=== PATIENT | female | born 1970 | race Caucasian/White ===

== ENCOUNTER → 2017-11-16 15:11 | Outpatient (CLI) | payer OTHER, SELFPAY ==
--- NOTE | 2017-11-16 15:19 | RAD_ITS ---
STUDY: X-RAY - LUMBAR SPINE REASON FOR EXAM: Female, 47 years old. Pain. TECHNIQUE: 5 view(s) of the lumbar spine were obtained. COMPARISON: None FINDINGS: Normal lumbar lordosis. There is no substantial scoliosis. There is a normal alignment of the vertebrae. There is minimal multilevel endplate spondylosis of the lumbar vertebrae. There is mild multi-level degenerative disc disease with multi-level disc space narrowing. There is no demonstrated fracture. The soft tissue structures are unremarkable. RAD/L/S Spine Min 4 Views IMPRESSION: No acute or focal abnormality. Unremarkable for age. Electronically Signed: Rhett Santos MD at 8:42 EDT , Service support ,
== END ==
PROVIDERS: Family Provider Family Medicine; PCP Family Medicine; Visit Provider Family Medicine
DX: M54.5 Low back pain (principal)
CPT/HCPCS: 72110

== ENCOUNTER 2018-12-01 17:59 | Emergency (ER) | payer MEDICAID, SELFPAY ==
[2018-12-01 18:00] VITALS: BP 153/75; PULSE 115; RESP 16; TEMP 37.3; O2SAT 97; BMI 39.1
--- NOTE | 2018-12-01 18:40 | ED.DCSUM_ITS ---
History of Present Illness Chief Complaint: Weakness Informant: Patient Onset: Month(s) - Dyspnea, fatigue and weakness x1 month Context: Gradual Onset Timing: Continuous Quality: Dyspnea, weakness dyspnea on exertion Location: Not applicable Current Severity: Mild Maximum Severity: Moderate Worsened by: Activity Relieved by: Nothing Associated Symptoms: No associated symptoms Narrative: Patient is a 48-year-old woman with history of anemia of unknown etiology who presents with dyspnea, dyspnea on exertion, weakness and fatigue. She believes she needs a blood transfusion. She denies fever, chills or night sweats. She reports weight gain not weight loss. She denies cough. She denies pleuritic chest pain. She denies history of PE or DVT. She does report leg swelling secondary to lymphedema. She denies discoloration or pain. She denies GI or symptoms. She denies history of coronary disease. She denies history of diabetes hypercholesterolemia. - Past Medical History (1) History of hypertension Status: Chronic (2) History of anemia Status: Chronic Past Medical History - Allergies and Home Meds Allergies/Adverse Reactions: Allergies No Known Allergies Allergy (Verified 12/01/18 18:00) Primary Care Physician: Care Physician,No Primary [Primary Care Provider] - Prior records reviewed: Yes Lives: Spouse/ Significant Other Smoking Status: Current every day smoker Drugs: None Review of Systems General: Denies: Chills, Fever, Sweats Eyes: Denies: Visual changes - bilaterally, Blurred Vision - bilaterally, Diplopia ENT: Denies: Bilateral ear pain, Rhinorrhea, Sore throat Cardiovascular: Denies: Chest pain, Palpitations Respiratory: Reports: Dyspnea, Dyspnea on exertion. Denies: Cough, Sputum, Orthopnea, Paroxysmal nocturnal dyspnea Gastrointestinal: Denies: Abdominal pain, Nausea, Vomiting, Diarrhea, Melena, Hematochezia Genitourinary: Denies: Dysuria, Hematuria, Frequency Musculoskeletal: Denies: Myalgias, Arthralgias, Neck pain, Back pain, Extremity Pain Skin: Denies: Rash, Wounds Neurological: Reports: Weakness. Denies: Headache, Parasthesia, Numbness, -, - Endocrine: Denies: Heat intolerance, Cold intolerance Hematologic: Denies: Easy bruising, Easy bleeding Physical Exam Vital Signs/Narrative: Vital Signs Temp Pulse Resp BP Pulse Ox 12/01/18 18:00 99.1 F 115 H 16 153/75 H 97 Inital Vital Signs reviewed: Yes General: Well nourished, Well developed, Obese, No Acute Distress Head: Normocephalic, Atraumatic Eyes: Perrl, EOMI. Negative for: Pale conjunctiva, Scleral icterus ENT: Moist mucous membranes, No rhinorrhea Neck: Supple, Nontender. Negative for: No lymphadenopathy, No JVD, - Cardiovascular: Regular rhythm, No murmurs, Normal S1, Normal S2, Tachycardia Respiratory: CTA bilaterally. Negative for: No distress - Patient is tachypnic at rest and respiratory rate is much greater than 16 documented by triage. Abdomen: Soft, Nontender, Nondistended, Normal bowel sounds, No masses Back: Nontender, Normal Inspection Extremities: Nontender, Edema - 1+ bilaterally Skin: Normal color, No rash, No Trauma. Negative for: Cyanosis, Diaphoresis, Jaundice Neurological: Alert, Oriented x3, Cranial nerves II-XII grossly intact, Normal Strength, Normal Sensation Psychological: Normal affect, Normal Mood Diagnostic/Tx/Re-eval Impressions Chest X-Ray 12/01/18 19:37 IMPRESSION: Normal x-ray examination of the chest. Electronically Signed: Jagdeep Fisher DO at 20:00 EDT Tel , Service support , 12/01/18 19:37 Chest PA and Lateral [RAD] Stat 12/01/18 20:03 CTA Chest W/WO Contrast [CT] Stat Laboratory Results 12/01/18 12/01/18 12/01/18 18:33 18:33 18:33 WBC 7.2 RBC 4.62 Hgb 9.7 L Hct 33.6 L MCV 72.7 L MCH 21.0 L MCHC 28.9 L RDW 19.9 H RDW Differential 51.8 H Plt Count 482 H MPV 9.0 Immature Gran % (Auto) 0.100 Neut % (Auto) 75.2 H Lymph % (Auto) 16.[address] [facility] % (Auto) 5.6 Eos % (Auto) 1.7 Baso % (Auto) 0.7 Absolute Neuts (auto) 5.4 Absolute Lymphs (auto) 1.20 Total Counted Not Reportable Differential Comment SCANNED Diff Path Review May foll Platelet Estimate SLT INC Polychromasia RARE Anisocytosis 2+ Microcytosis 1+ Tear Drop Cells RARE D-Dimer Quant (PE/DVT) 1.28 H* Sodium 140 Potassium 4.1 Chloride 107 Carbon Dioxide 25.0 Anion Gap 8 BUN 20 H Creatinine 0.78 Estim Creat Clear Calc 88.01 Est GFR (MDRD) Af Amer 100 Est GFR (MDRD) Non-Af 83 BUN/Creatinine Ratio 25.5 H Glucose 113 H Calcium 9.2 Troponin I 12/01/18 18:33 WBC RBC Hgb Hct MCV MCH MCHC RDW RDW Differential Plt Count MPV Immature Gran % (Auto) Neut % (Auto) Lymph % (Auto) [facility] % (Auto) Eos % (Auto) Baso % (Auto) Absolute Neuts (auto) Absolute Lymphs (auto) Total Counted Differential Comment Diff Path Review Platelet Estimate Polychromasia Anisocytosis Microcytosis Tear Drop Cells D-Dimer Quant (PE/DVT) Sodium Potassium Chloride Carbon Dioxide Anion Gap BUN Creatinine Estim Creat Clear Calc Est GFR (MDRD) Af Amer Est GFR (MDRD) Non-Af BUN/Creatinine Ratio Glucose Calcium Troponin I < 0.015 - Medical Decision Making We will place on monitor to determine rhythm. Clinically patient does not appear anemic since there is erythema in the crease of the palm and conjunctive is pink. Concern her symptoms are for other reasons. Patient states she is anemic. Will obtain CBC and BMP. If there is no evidence of anemia will entertain cardiac pulmonary etiology and further testing will be ordered. CTA reveals bilateral pulmonary embolus. Awaiting formal read. Patient will receive a dose of Eliquis. If formal read is in agreement will discharge a prescription for Eliquis. Based on medical calculator for pulmonary embolus severity index patient is at very low risk for event of 30 days. More importantly symptoms started 30 days ago and she has survived. I was contacted by radiologist at 2036. ED Disposition - Plan for ED Patient: Disposition: Home or Assisted Living Diagnosis: Bilateral pulmonary embolism Instructions: Pulmonary Embolism Prescriptions: Apixaban [Eliquis] 5 mg PO BID #74 tab Referrals: Care Physician,No Primary [Primary Care Provider] - Doctor,Your [STAFF PHYSICIAN] -
[2018-12-01 18:55] LABS: Absolute Neutrophil Count 5.4 X10^3/uL (2.0-7.7); Basophil# 0.05 X10^3/uL; Basophil% 0.7 % (0-1); Eosinophil# 0.12 X10^3/uL; Eosinophils% 1.7 % (0-5); Hematocrit 33.6 % (37-47); Hemoglobin 9.7 g/dl (12.0-15.0); Lymphocyte % 16.7 % (19-41); Mean Corp Hgb Conc 28.9 g/gl (32-36); Mean Corpuscular Volume 72.7 fL (81-99); Monocyte% 5.6 % (0-10); Neutrophil # 5.42 X10^3/uL (2.7-7.7); Neutrophil % 75.2 % (47-70); Platelet Count 482 K/mm3 (150-450); RBC Distribution Width CV 19.9 % (11.6-14.6); RBC Distribution Width SD 51.8 fl (35.1-43.9); Red Blood Count 4.62 M/mm3 (4.2-5.4); White Blood Count 7.2 K/mm3 (4.4-11.0)
[2018-12-01 18:58] LABS: Differential Indicated SCAN CRITERIA MET; POSITIVE COUNT NO; POSITIVE DIFFERENTIAL NO; POSITIVE MORPHOLOGY YES
--- NOTE | 2018-12-01 19:07 | EKG12_ITS ---
Test Reason : Blood Pressure : / mmHG Vent. Rate : 092 BPM Atrial Rate : 092 BPM P-R Int : 144 ms QRS Dur : 082 ms QT Int : 364 ms P-R-T Axes : 037 -23 012 degrees QTc Int : 450 ms Normal sinus rhythm Normal ECG Confirmed by DEUCE BAINS, SARAH ([id number]), market editor DELMY KAPLAN ([id number] on 12/04/2018 1:45:19 PM Referred By: Confirmed By:SARAH TRIPATHI MD
[2018-12-01 19:11] LABS: Anion Gap 8 (5-15); BUN 20 mg/dL (7-18); BUN/Creat Ratio 25.5 RATIO (10-20); Calcium,Total 9.2 mg/dL (8.5-10.1); Chloride 107 mmol/L (98-107); Creatinine, Serum 0.78 mg/dL (0.55-1.02); EST Glomerular Filtration Rate 83 mL/min (>60); Est Glom Filt Rate - Afr Amer 100 mL/min (>60); Estimated Creatinine Clearance 88.01 ml/min; Glucose 113 mg/dL (74-106); Potassium 4.1 mmol/L (3.5-5.1); Sodium Level 140 mmol/L (136-145)
--- NOTE | 2018-12-01 19:37 | RAD_ITS ---
STUDY: X-RAY CHEST REASON FOR EXAM: Female, 48 years old. Weakness and fatigue TECHNIQUE: PA and lateral views of the chest. COMPARISON: 01/28/2017 FINDINGS: Stable hiatal hernia with air-fluid level The lungs are clear and expanded. There is no demonstrated pleural abnormality. Normal size heart. Normal mediastinum and trish. Normal visualized pulmonary arteries. Normal visualized aortic arch and descending thoracic aorta. Normal visualized thoracic spine. Normal visualized ribs, clavicles, and shoulders. There is no demonstrated abnormality of the visualized soft tissue structures of the upper abdomen. RAD/Chest PA and Lateral IMPRESSION: Normal x-ray examination of the chest. Electronically Signed: Jagdeep Fisher DO at 20:00 EDT Tel , Service support ,
[2018-12-01 19:59] LABS: D-Dimer Quantitative (DVT/PE) 1.28 FEU/ug/m (0.27-0.49)
--- NOTE | 2018-12-01 20:02 | ED.RN ---
DR SALGUERO NOTIFIED OF DDIMER RESULTS
--- NOTE | 2018-12-01 20:03 | CT_ITS ---
We are attempting to reach an attending provider to discuss findings. An addendum with communication details will be sent when the communication is complete. STUDY: CTA CHEST REASON FOR EXAM: Female, 48 years old. Tachycardia and elevated d-dimer RADIATION DOSAGE (If Supplied By Facility): CTDIvol = ( 9.22 ) mGy, DLP = ( 533.44 ) mGycm TECHNIQUE: The examination was performed with the intravenous administration of 100ML IV Isovue 370. Post-processing of the angiographic images was performed, with multiplanar reformation and 3D reconstruction. Individualized dose optimization techniques were used for this CT. COMPARISON: None. FINDINGS: Normal enhancement of the main pulmonary artery and right and left pulmonary arteries. There is intraluminal thrombus noted within the distal right pulmonary artery descending interlobar branch of the right pulmonary artery and multiple segmental as well as subsegmental vessels to the right lower lobe. . There is also intraluminal thrombus within the descending interlobar vessel and segmental vessels to the left lower lobe. Normal thoracic aorta and visualized great vessels. There is no demonstrated aortic dissection. Normal heart and pericardium. Normal mediastinum. Normal hilar regions. Normal visualized trachea and bronchi. The lungs are well expanded. Normal pulmonary parenchyma. Normal pleura. Normal chest wall structures. Normal osseous structures. Large intrathoracic hiatal hernia is noted. Normal visualized upper abdomen. CT/CTA Chest W/WO Contrast IMPRESSION: Multiple bilateral pulmonary emboli to the lower lobe vessels Large intrathoracic hiatal hernia Electronically Signed: Randolph Palacio MD at 20:37 EDT , Service support ,
[2018-12-01 20:11] LABS: Anisocytosis 2+; Differential Comment SCANNED; Microcytosis 1+; Platelet Estimate SLT INC (ADEQ); Polychromasia RARE; Tear Drop Cell RARE
[2018-12-01 20:26] VITALS: BP 109/83; PULSE 94; RESP 20; O2SAT 96
[2018-12-01] MEDS: APIXABAN 5 MG TABLET 10 MG PO (20:49)
--- NOTE | 2018-12-01 21:04 | ED.DCSUM_ITS ---
- ER Visit Summary Date of Service: 12/01/18 Chief Complaint: [] History of Present Illness: The patient is a 48 F [] Physical Examination: [] Test Results: [] Emergency Department Course and Treatment: [] Treatment Plan: [] Disposition: [] Impression: [] This note was generated with Eyestorm dictation software. It may contain incorrect words, spelling, and punctuation that were not noted in review of the chart prior to signing ED Disposition - Plan for ED Patient: Disposition: Home or Assisted Living Diagnosis: Bilateral pulmonary embolism Instructions: Pulmonary Embolism Prescriptions: Levothyroxine Sodium [Synthroid] 150 mcg PO DAILY #30 tab Apixaban [Eliquis] 5 mg PO BID #74 tab Referrals: Care Physician,No Primary [Primary Care Provider] - Doctor,Your [STAFF PHYSICIAN] -
[2018-12-04 15:10] LABS: Pathologist Review Reviewed
== END 2018-12-01 20:53 | disposition home or self-care (01) ==
PROVIDERS: Emergency Provider Emergency Medicine
DX: I26.99 Other pulmonary embolism without acute cor pulmonale (principal); I10 Essential (primary) hypertension; D64.9 Anemia, unspecified; F17.200 Nicotine dependence, unspecified, uncomplicated
CPT/HCPCS: 71046; 71275; 80048; 84484; 85025; 85379; 93005; 99285; Q9967; A4216

== ENCOUNTER → 2019-06-19 08:00 | Outpatient (CLI) | payer MEDICAID, SELFPAY ==
[2019-05-29 10:27] VITALS: BMI 40.1
--- NOTE | 2019-06-20 09:26 | PFT ---
INTRODUCTION: The patient is a 49-year-old female that presents for pulmonary function studies secondary to a diagnosis of nicotine dependence. Respiratory therapy reports good patient effort. Bronchodilators were used during testing. INTERPRETATION: Forced expiration spirometry demonstrates no evidence of a large airways obstructive ventilatory defect. There was a partial, albeit technically nonsignificant, response to aerosolized bronchodilators. There was a rather robust mid flow bronchodilator response. Spirograms are of good quality and plateau normally. Body plethysmography was performed and reveals an elevated TLC and RV. Diffusing capacity by single breath CO is reduced to 69% of predicted. IMPRESSION: Subtle findings of possible small airways disease with partial, albeit technically nonsignificant, response to bronchodilators.
== END ==
PROVIDERS: Referring Provider Internal Medicine Critical Care Medicine; Visit Provider Internal Medicine Critical Care Medicine
DX: F17.210 Nicotine dependence, cigarettes, uncomplicated (principal)
CPT/HCPCS: 94060; 94726; 94729

== ENCOUNTER 2019-12-16 19:57 | Emergency (ER) | payer MEDICAID, SELFPAY ==
[2019-05-29 10:27] VITALS: BMI 40.1
[2019-12-16 19:58] VITALS: BP 117/83; PULSE 91; RESP 18; TEMP 36.1; O2SAT 99; BMI 39.5
[2019-12-16 20:10] VITALS: BP 123/84; PULSE 90; RESP 16; O2SAT 99
--- NOTE | 2019-12-16 20:13 | CT_ITS ---
STUDY: CT BRAIN WITHOUT CONTRAST REASON FOR EXAM: Female, 49 years old. Near syncope, heavy object fell on patient''s head. RADIATION DOSAGE (If Supplied By Facility): CTDIvol = ( 44.99 ) mGy, DLP = ( 798.92 ) mGycm TECHNIQUE: Transaxial CT imaging of the brain was performed without administration of intravenous contrast material. Individualized dose optimization techniques were used for this CT. COMPARISON: No relevant priors. FINDINGS: Normal soft tissue structures. Normal calvarium. Normal size ventricles and extra-axial spaces for the patient''s age. Normal white matter tracts of the cerebral hemispheres. Normal basal ganglia and thalami. Normal brainstem. Normal cerebellum. There is no intracranial hemorrhage. There are no findings of an acute ischemic infarction. Normal visualized paranasal sinuses. CT/Brain/Head without Contrast IMPRESSION: Normal unenhanced CT scan of the brain. Electronically Signed: Roberto Carlos Beard MD at 20:58 EDT Tel , Service support ,
--- NOTE | 2019-12-16 20:14 | EKG12_ITS ---
Test Reason : SYNCOPE Blood Pressure : / mmHG Vent. Rate : 078 BPM Atrial Rate : 078 BPM P-R Int : 174 ms QRS Dur : 080 ms QT Int : 350 ms P-R-T Axes : 046 -21 075 degrees QTc Int : 399 ms Normal sinus rhythm Low voltage QRS Nonspecific T wave abnormality Abnormal ECG Confirmed by DEUCE BAINS, SARAH ([id number]), metropolitan editor DELMY KAPLAN ([id number]) on 12/18/2019 11:13:27 AM Referred By: OMER Confirmed By:SARAH TRIPATHI MD
[2019-12-16] MEDS: 0.9% Normal Saline 1,000 ML 1000 ML IV (20:26)
[2019-12-16 20:38] LABS: Absolute Lymphocyte Count 1.47 X10^3/uL (0.83-4.51); Absolute Neutrophil Count 4.8 X10^3/uL (2.0-7.7); Basophil# 0.05 X10^3/uL; Basophil% 0.7 % (0-1); Eosinophil# 0.08 X10^3/uL; Eosinophils% 1.2 % (0-5); Hemoglobin 8.8 g/dL (12.0-15.0); Lymphocyte # 1.47 X10^3/ul (4.0); Lymphocyte % 21.2 % (19-41); Mean Corp Hgb Conc 29.3 g/dL (32-36); Mean Corpuscular Hgb 25.1 pg (27.0-32.0); Mean Corpuscular Volume 85.7 fL (81-99); Mean Platelet Vol. 10.3 fl (6.2-12.0); Monocyte# 0.52 X10^3/uL; Monocyte% 7.5 % (0-10); NRBC Flagged by Analyzer 0 % (0-5); POSITIVE MORPHOLOGY YES; Platelet Count 306 K/mm3 (150-450); RBC Distribution Width CV 21.7 % (11.6-14.6); RBC Distribution Width SD 66.5 fl (35.1-43.9)
[2019-12-16 20:42] LABS: Differential Indicated SCAN CRITERIA MET
[2019-12-16 20:48] LABS: International Normalized Ratio 1.1; Prothrombin Time (Protime)PT. 13.5 SECONDS (11.7-14.9)
[2019-12-16 20:49] LABS: Partial Thromboplast Time 32.6 Seconds (24.1-36.2)
[2019-12-16 21:25] LABS: Anisocytosis 4+; Differential Comment SCANNED; Ovalocyte RARE; Platelet Estimate ADEQUATE (ADEQ); Polychromasia RARE
[2019-12-16 21:37] LABS: Anion Gap 6 (5-15); BUN 21 mg/dL (7-18); BUN/Creat Ratio 19.8 RATIO (10-20); Calcium,Total 8.8 mg/dL (8.5-10.1); Chloride 107 mmol/L (98-107); Creatinine, Serum 1.06 mg/dL (0.55-1.02); EST Glomerular Filtration Rate 58 mL/min (>60); Est Glom Filt Rate - Afr Amer 70 mL/min (>60); Estimated Creatinine Clearance 64.05 ml/min; Glucose 100 mg/dL (74-106); Potassium 4.4 mmol/L (3.5-5.1); Sodium Level 139 mmol/L (136-145)
[2019-12-16 22:13] VITALS: BP 128/72; BP 140/93; BP 143/99; PULSE 71; PULSE 79; PULSE 88; RESP 16; O2SAT 99
--- NOTE | 2019-12-16 22:23 | ED.VISSUMM ---
- ER Visit Summary Date of Service: 12/16/19 Chief Complaint: Vaginal bleeding History of Present Illness: The patient is a 49 F who goes to the [facility]. She does not see a dump motorman. She reports that she has vaginal bleeding that began 5 days ago. States that she is having to change a pad every 30 minutes. She reports that she had a episode of heavier bleeding 2 months ago, but is never had anything this severe. She states that she is typically having a period every 2 months. She last had vaginal bleeding 1 week ago that lasted 1 day. Patient has a history of PE and is on Eliquis. Her last dose was at 9:00 this morning. She also reports that she has a history of hypothyroidism and has not been taking her Synthroid as she has not been able to get a refill during the pandemic. Patient reports that she had a syncopal episode today while walking back from the bathroom. She did have a blow to the head. She denies any preceding symptoms. Physical Examination: Vitals: Stable. Afebrile. General: Well-nourished and well-developed. Head: Normocephalic atraumatic. Neck: Supple, no lymphadenopathy. No JVD. Nontender. Cardiovascular: Regular rate and rhythm. No murmurs. Respiratory: No respiratory distress. Clear to auscultation bilaterally. Abdominal: Soft, nontender, nondistended, normal bowel sounds. No guarding, rebound, or peritoneal signs. : Patient refused a pelvic exam. Back: Nontender. Extremities: Nontender, no edema. Skin: Normal color, no rash. Neurologic: Alert and oriented ?3. Cranial nerves II through XII are intact. Normal strength and sensation. Psych: Normal affect. Test Results: CBC shows a hemoglobin of 8.8 with hematocrit of 30.0. Last hemoglobin was 9.7 in 2019. Chem-7 shows a BUN of 21 and creatinine 1.06. INR is 1.1. PTT is 32.6. TSH is 178. EKG is sinus at [address] changes. Clinical Impression(s) from Imaging Studies Brain CT 12/16/19 20:13 IMPRESSION: Normal unenhanced CT scan of the brain. Electronically Signed: Roberto Carlos Beard MD at 20:58 EDT Tel , Service support , Emergency Department Course and Treatment: Patient had negative orthostatic vital signs. She was given a liter of IV fluids. She refused pain medications. Treatment Plan: The patient was discussed with Dr. Butts who will be in to see her in the emergency department. The patient is adamant that she will not be admitted to the hospital. Dr. Butts tried to talk her into staying in the hospital as well. She continued to refuse this. Patient is alert and oriented x3. I had a prolonged discussion with her about the possibility of continued bleeding. She does understand this and would like to leave regardless of this. Patient has written an order for an outpatient H&H to be obtained tomorrow and instructed to follow-up with Dr. Butts tomorrow as well. She will be placed back on her Synthroid. Return to the emergency department for any worsening symptoms. Disposition: Left AGAINST MEDICAL ADVICE. Impression: 1. Vaginal bleeding. 2. Coagulopathy on Eliquis. 3. Hypothyroid. 4. Left AGAINST MEDICAL ADVICE. This note was generated with Flixwagonation software. It may contain incorrect words, spelling, and punctuation that were not noted in review of the chart prior to signing ED Disposition - Plan for ED Patient: Instructions: ED Bleed Irregular Vaginal Prescriptions: Levothyroxine [Synthroid] 125 mcg PO DAILY #30 tablet Referrals: Jennifer Dumont [Primary Care Provider] - 1-2 Weeks Sera Butts DO [STAFF PHYSICIAN] - 1 Day for another exam
[2019-12-16] MEDS: Levothyroxine 125 MCG Tablet PO (22:43)
--- NOTE | 2019-12-16 22:58 | PCM.CONS.GEN ---
Problem List (1) Menorrhagia Status: Acute (2) Irregular menses Status: Acute (3) Obesity Status: Acute (4) History of pulmonary embolism Status: Acute (5) Hx of senior living use of blood thinners Status: Acute Reason for Consult Date of Consultation: 12/16/19 Reason for Consultation: vaginal bleeding History of Present Illness: The patient is a 49 year old F [] presents with menorrhagia with irregular cycle. She has not established with a travel med surg rn. She reports she has not seen a travel med surg rn in many years. She states recently she has had irregular cycles where she will skip 2 to 3 months without having a menstrual cycle. She then has heavy menses, which typically last 1 to 3 days. This episode of vaginal bleeding started out 3 days ago. She is using 2 large pads at a time and changing them every 2 hours. She had a syncopal episode today due to feeling lightheaded and dizzy. She reports chronic anemia with a baseline hemoglobin of 7. She has a history of a pulmonary embolism and is on Eliquis. She says she has had blood transfusions before in the past. Past Medical History Past Medical History (Chronic Problems): Chronic Problems (Last Updated 02/07/19 @ 10:15 by Nano Mace) Thyroid disorder (Chronic) History of hypertension (Chronic) History of anemia (Chronic) Medical History: Medical History (Last Updated 02/07/19 @ 10:15 by Nano Mace) Thyroid disorder (Chronic) E07.9 Pulmonary embolism (Acute) I26.99 History of hypertension (Chronic) Z86.79 History of anemia (Chronic) Z86.2 Allergies No Known Allergies Allergy (Verified 12/16/19 20:01) Home Medications: Ambulatory Orders Medication Instructions Recorded Dexamethasone [Decadron] 4 mg PO DAILY PRN 12/01/18 Modafinil 200 mg PO BID 12/01/18 Prednisone 40 mg PO DAILY PRN 12/01/18 apixaban 5 mg tablet 5 mg PO BID #60 tab 10/18/19 Ergocalciferol [Vitamin D] 50,000 mcg PO QWEEK 12/16/19 Gabapentin [Neurontin] 600 mg PO BID 12/16/19 Gabapentin [Neurontin] 900 mg PO DAILY 12/16/19 Levothyroxine [Synthroid] 125 mcg PO DAILY #30 tab 06/14/20 Smoking Status: Light Smoker (<10/day) Review of Systems Gynecological: Reports: Vaginal bleeding Hematologic/ Lymphatic: Reports: Hx of blood clot, Hx of blood transfusion Patient Problems: Active and Suspected Problems (Last Updated 02/07/19 @ 10:15 by Nano Mace) Menorrhagia (Acute) Irregular menses (Acute) Obesity (Acute) History of pulmonary embolism (Acute) Hx of director long term care use of blood thinners (Acute) - Physical Exam Vitals/I&O's: Vital Signs Temp Pulse Resp BP Pulse Ox 97 F L 71 16 128/72 H 99 12/16/19 19:58 12/16/19 22:13 12/16/19 22:13 12/16/19 22:13 12/16/19 22:13 Oxygen Delivery Method Room Air Weight: 260 lb Body Mass Index (BMI) 39.5 Intake and Output for Last 24 Hours 12/14/19 12/15/19 12/16/19 23:59 23:59 23:59 Intake Total 1000 / 1000 Balance 1000 / 1000 General: Alert, No apparent distress HEENT: Atraumatic Lungs: Normal air movement Abdomen: Soft, Non Tender, Non-Distended, Obese, - - Sustainability Coordinator exam- 2 pads that were placed about 20 min ago were completely saturated with bright red blood. Heavy vaginal bleeding was noted with a gold ball sized clot. Skin: No rashes Neurological: Neuro grossly intact Psych/Mental Status: Normal Affect, Appropriate Laboratory Results 12/16/19 20:20: WBC 7.0, RBC 3.50 L, Hgb 8.8 L, Hct 30.0 L, MCV 85.7, MCH 25.1 L, MCHC 29.3 L, RDW Std Deviation 66.5 H, RDW Coeff of [place] 21.7 H, Plt Count 306, MPV 10.3, Immature Gran % (Auto) 0.400, Neut % (Auto) 69.0, Lymph % (Auto) 21.2, [place] % (Auto) 7.5, Eos % (Auto) 1.2, Baso % (Auto) 0.7, Absolute Neuts (auto) 4.8, Absolute Lymphs (auto) 1.47, Nucleated RBC % 0, Differential Comment SCANNED, Platelet Estimate ADEQUATE, Polychromasia RARE, Anisocytosis 4+, Ovalocytes RARE 12/16/19 20:20: PT 13.5, INR 1.1, APTT 32.6 12/16/19 20:20: Sodium 139, Potassium 4.4, Chloride 107, Carbon Dioxide 26.0, Anion Gap 6, BUN 21 H, Creatinine 1.06 H, Estim Creat Clear Calc 64.05, Est GFR (MDRD) Af Amer 70, Est GFR (MDRD) Non-Af 58 L, BUN/Creatinine Ratio 19.8, Glucose 100, Calcium 8.8, TSH 178.00 H 12/16/19 20:20: Blood Type A POSITIVE, Antibody Screen NEGATIVE Assessment/Plan All Active Problems (Last Updated 02/07/19 @ 10:15 by Nano Mace) Menorrhagia (Acute) Irregular menses (Acute) Obesity (Acute) History of pulmonary embolism (Acute) Hx of director long term care use of blood thinners (Acute) Pulmonary embolism (Acute) Evaluated in the ER for menorrhagia with regular cycle. History of pulmonary embolism and on Eliquis. She is not established with a travel med surg rn. She is hemodynamically stable on exam but with a hemoglobin of 8.8. Unclear baseline. Heavy vaginal bleeding was noted on exam. Discussed importance of admission overnight for serial hemoglobin measurements. The patient refuses observation. Discussed risks of going home, and that given a starting hemoglobin of 8.8 and the bleeding that she has on exam, she could due to acute blood loss anemia. Patient understands the risks of going home. The patient understands that in leaving she is doing so against our medical advice, and it is strongly recommended that she stay overnight for further monitoring. Will have patient get a CBC in the morning. Discussed need for pelvic ultrasound, endometrial biopsy, Mirena IUD placement as an outpatient. Will need follow-up as an outpatient. The patient is agreeable to the Mirena IUD.
[2019-12-16 23:10] VITALS: RESP 18
== END 2019-12-16 23:20 | disposition home or self-care (01) ==
LOC: ED 20:36
PROVIDERS: Emergency Provider Emergency Medicine
DX: N93.9 Abnormal uterine and vaginal bleeding, unspecified (principal); E03.9 Hypothyroidism, unspecified; F17.200 Nicotine dependence, unspecified, uncomplicated; Z79.01 Long term (current) use of anticoagulants; Z53.29 Procedure and treatment not carried out because of patient's decision for other reasons
CPT/HCPCS: 70450; 80048; 84443; 85025; 85610; 85730; 86850; 86900; 86901; 93005; 96360; 96361; 99285

== ENCOUNTER 2019-12-25 19:54 | Observation (INO) | payer MEDICAID, SELFPAY ==
[2019-12-25 19:56] VITALS: BP 145/75; PULSE 103; RESP 19; TEMP 36.7; O2SAT 96; BMI 36.5
--- NOTE | 2019-12-25 20:06 | EKG12_ITS ---
Test Reason : WEAKNESS Blood Pressure : / mmHG Vent. Rate : 099 BPM Atrial Rate : 099 BPM P-R Int : 168 ms QRS Dur : 082 ms QT Int : 336 ms P-R-T Axes : 051 -38 052 degrees QTc Int : 431 ms Normal sinus rhythm Left axis deviation Nonspecific T wave abnormality Abnormal ECG Confirmed by TAYLOR HAWKINS ([id number]), editor index GOGO HAMILTON ([id number]) on 01/01/2020 8:08:23 AM Referred By: Stephani Mobley Confirmed By:TAYLOR HAWKINS
--- NOTE | 2019-12-25 20:07 | US_ITS ---
PROCEDURE: ULTRASOUND OF THE FEMALE PELVIS - COMPLETE REASON FOR EXAM: Female, 49 years old. BLEEDING- EXCESSIVE OVER A MONTH WIH CLOTS TECHNIQUE: Transabdominal and Transvaginal TECHNICAL QUALITY: Adequate. COMPARISON: None. FINDINGS: The uterus is anteverted and is in a midline position. The uterus measures 10.5 x 7.3 x 5.5 cm. A posterior fundal intramural fibroid is present measuring 2.1 x 2.1 cm. The endometrium measures 9 mm in thickness, and is hyperechoic. There is no demonstrated endometrial mass. There is a Nabothian cyst of the cervix. The right ovary is non-visualized. There is no visualized right adnexal mass or complex lesion. The left ovary is non-visualized. There is no visualized left adnexal mass or complex lesion. Normal color vascular flow and Doppler signal is demonstrated in both ovaries. There is no fluid in the cul-de-sac. US/Transvaginal Non- IMPRESSION: Small posterior fundal intramural fibroid. Electronically Signed: Sandro Li MD at 22:21 EDT , Service support ,
[2019-12-25 20:20] LABS: Bedside Glucose 94 mg/dL (70-110)
[2019-12-25] MEDS: 0.9% Normal Saline 1,000 ML 1000 ML IV (20:52)
--- NOTE | 2019-12-25 20:59 | ED.DCSUM_ITS ---
History of Present Illness Chief Complaint: Weakness Informant: Patient Onset: Days Context: Gradual Onset Timing: Continuous Current Severity: Moderate Maximum Severity: Moderate Narrative: The patient is a 49-year-old female history significant for prior pulmonary embolus was on Eliquis that presents to the emergency department with dizziness and near syncope. The patient was seen here about a week ago. At that point, she had heavy vaginal bleeding. She was evaluated by WOOD CARVING MACHINE OPERATOR who told the patient that she should be admitted. The patient signed out AGAINST MEDICAL ADVICE. Her bleeding has improved, but she still states that she is been generally weak and lightheaded. She has required transfusion in the past. She denies any fevers or chills. Prior similar symptoms: Yes Recent Illness/Hospitalization: No Past Medical History - Allergies and Home Meds Allergies/Adverse Reactions: Allergies No Known Allergies Allergy (Verified 12/25/19 19:55) Primary Care Physician: Jennifer Dumont [Primary Care Provider] - Prior records reviewed: Yes Past Medical History: - - Prior pulmonary embolus Surgical History: noncontributory Smoking Status: Current every day smoker Review of Systems General: Reports: Malaise. Denies: Chills, Fever, Sweats Eyes: Denies: Visual changes - bilaterally, Diplopia ENT: Denies: Rhinorrhea, Sore throat Cardiovascular: Denies: Chest pain, Palpitations Respiratory: Denies: Dyspnea, Cough, Dyspnea on exertion Gastrointestinal: Reports: Nausea. Denies: Abdominal pain, Vomiting, Diarrhea, Melena, Hematochezia Genitourinary: Denies: Dysuria, Hematuria, Frequency Musculoskeletal: Denies: Back pain, Extremity Pain Skin: Denies: Rash, Wounds Neurological: Denies: Headache, Weakness, Numbness Physical Exam Vital Signs/Narrative: Vital Signs Temp Pulse Resp BP Pulse Ox 12/25/19 19:56 98.1 F 103 H 19 H 145/75 H 96 Inital Vital Signs reviewed: Yes General: Well nourished, Well developed, No Acute Distress Head: Normocephalic, Atraumatic Eyes: Perrl, EOMI ENT: Moist mucous membranes, No rhinorrhea Neck: Supple, Nontender Cardiovascular: Regular rate, Regular rhythm, No murmurs Respiratory: No distress, CTA bilaterally, Chest nontender Abdomen: Soft, Nontender, Nondistended, Normal bowel sounds Back: Nontender, Normal Inspection Extremities: Nontender, No edema Skin: Normal color, No rash Neurological: Alert, Oriented x3, Cranial nerves II-XII grossly intact, Normal Strength, Normal Sensation Psychological: Normal affect, Normal Mood Diagnostic/Tx/Re-eval Clinical Impression(s) from Imaging Studies Transvaginal US 12/25/19 20:07 IMPRESSION: Small posterior fundal intramural fibroid. Electronically Signed: Sandro Li MD at 22:21 EDT , Service support , Abnormal Lab Results 12/25/19 12/25/19 12/25/19 20:15 20:20 20:50 WBC 6.6 RBC 2.40 L Hgb 6.3 L Hct 21.6 L MCV 90.0 MCH 26.3 L MCHC 29.2 L RDW Std Deviation 73.8 H RDW Coeff of [place] 22.8 H Plt Count 333 MPV 9.8 Immature Gran % (Auto) 1.100 H Neut % (Auto) 72.9 H Lymph % (Auto) 18.8 L Rhea % (Auto) 5.5 Eos % (Auto) 1.1 Baso % (Auto) 0.6 Absolute Neuts (auto) 4.8 Absolute Lymphs (auto) 1.23 Nucleated RBC % 0.8 Differential Comment Sodium Potassium Chloride Carbon Dioxide Anion Gap BUN Creatinine Estim Creat Clear Calc Est GFR (MDRD) Af Amer Est GFR (MDRD) Non-Af BUN/Creatinine Ratio Glucose Calcium Total Bilirubin AST ALT Alkaline Phosphatase Total Protein Albumin Globulin Albumin/Globulin Ratio Urine Color Red Urine Clarity Cloudy Urine pH 6.5 Ur Specific [place] 1.010 Urine Protein 100 H Urine Glucose (UA) Normal Urine Ketones 5 H Urine Occult Blood 250 H Urine Nitrite Negative Urine Bilirubin Negative Urine Urobilinogen Normal Ur Leukocyte Esterase 100 H Urine RBC > 100 SEEN Urine WBC 50-100 SEEN Ur Squamous Epith Cells 5-10 SEEN Amorphous Sediment 1+ URATE Urine Bacteria 0 SEEN Urine Mucus RARE POC Glucose 94 Blood Type Antibody Screen Crossmatch 12/25/19 12/25/19 12/25/19 20:50 20:50 20:50 WBC RBC Hgb Hct MCV MCH MCHC RDW Std Deviation RDW Coeff of [place] Plt Count MPV Immature Gran % (Auto) Neut % (Auto) Lymph % (Auto) Rhea % (Auto) Eos % (Auto) Baso % (Auto) Absolute Neuts (auto) Absolute Lymphs (auto) Nucleated RBC % Differential Comment Sodium 139 Potassium 4.2 Chloride 104 Carbon Dioxide 27.0 Anion Gap 8 BUN 15 Creatinine 1.24 H Estim Creat Clear Calc 54.75 Est GFR (MDRD) Af Amer 59 L Est GFR (MDRD) Non-Af 49 L BUN/Creatinine Ratio 12.1 Glucose 106 Calcium 9.0 Total Bilirubin 0.20 AST 16 ALT 24 Alkaline Phosphatase 62 Total Protein 6.9 Albumin 3.8 Globulin 3.1 Albumin/Globulin Ratio 1.2 Urine Color Urine Clarity Urine pH Ur Specific [place] Urine Protein Urine Glucose (UA) Urine Ketones Urine Occult Blood Urine Nitrite Urine Bilirubin Urine Urobilinogen Ur Leukocyte Esterase Urine RBC Urine WBC Ur Squamous Epith Cells Amorphous Sediment Urine Bacteria Urine Mucus POC Glucose Blood Type A POSITIVE Antibody Screen NEGATIVE Crossmatch See Detail - Medical Decision Making The patient presents to the emergency department with near syncope likely secondary to anemia. She is on Eliquis and has had heavy vaginal bleeding. She was evaluated by Dr. Butts, of DENTAL HYGIENE ADMINISTRATIVE ASSISTANT, during her last presentation who recommended admission. The patient was initially mildly tachycardic on arrival. EKG was obtained which was sinus rhythm without acute ischemia. Screening labs do show anemia with hemoglobin of 6.3. As the patient is now symptomatic, I do feel that she would benefit from transfusion. I had discussed the patient with Dr. Palubmo, on-call for DENTAL HYGIENE ADMINISTRATIVE ASSISTANT [facility], Dr. Eli group. She did agree with plan for transfusion. The patient underwent ultrasound which shows a small fibroid, with is is unremarkable. The patient will be admitted at this time for anemia. Impression 1. Symptomatic anemia secondary to vaginal bleeding ED Disposition - Plan for ED Patient: Referrals: Jennifer Dumont [Primary Care Provider] -
[2019-12-25 21:01] LABS: Bacteria 0 SEEN /hpf (None Seen)
[2019-12-25 21:05] LABS: Absolute Lymphocyte Count 1.23 X10^3/uL (0.83-4.51); Absolute Neutrophil Count 4.8 X10^3/uL (2.0-7.7); Basophil# 0.04 X10^3/uL; Basophil% 0.6 % (0-1); Eosinophil# 0.07 X10^3/uL; Eosinophils% 1.1 % (0-5); Hematocrit 21.6 % (37-47); Hemoglobin 6.3 g/dL (12.0-15.0); Lymphocyte # 1.23 X10^3/ul (4.0); Lymphocyte % 18.8 % (19-41); Mean Corp Hgb Conc 29.2 g/dL (32-36); Mean Corpuscular Hgb 26.3 pg (27.0-32.0); Mean Platelet Vol. 9.8 fl (6.2-12.0); Monocyte# 0.36 X10^3/uL; Monocyte% 5.5 % (0-10); NRBC Flagged by Analyzer 0.8 % (0-5); Neutrophil # 4.78 X10^3/uL (2.7-7.7); Neutrophil % 72.9 % (47-70); POSITIVE MORPHOLOGY YES; Platelet Count 333 K/mm3 (150-450); RBC Distribution Width CV 22.8 % (11.6-14.6); RBC Distribution Width SD 73.8 fl (35.1-43.9); White Blood Count 6.6 K/mm3 (4.4-11.0)
[2019-12-25 21:07] LABS: Color, Urine Red (Yellow); Glucose, Dipstick Normal (Normal); Ketone-Dipstick 5 mg/dl (Negative); Leukocyte Esterase-Dipstick 100 /ul (Negative); Nitrite-Dipstick Negative (Negative); Occult Blood-Urine 250 /ul (Negative); Protein-Dipstick 100 mg/dl (Negative); Urine Bilirubin Dipstick Negative (Negative); Urine Clarity Cloudy (Clear); Urine Urobilinogen Normal (Normal); Urine pH 6.5 (5.0 - 8.0)
[2019-12-25 21:13] LABS: Differential Indicated SCAN CRITERIA MET
[2019-12-25 21:19] LABS: Amorphous Sediment 1+ URATE; Mucous, Urine RARE /hpf (<or=2+); Red Blood Cells-Urine > 100 SEEN /hpf (0-5); Squamous Epithelial Cells - UA 5-10 SEEN /hpf (5-10); White Blood Cells 50-100 SEEN /hpf (0-5)
[2019-12-25 21:20] LABS: ALB/GLOB Ratio 1.2 RATIO (0.9-2.4); AST(SGOT) 16 U/L (15-37); Alanine Aminotransfer ALT/SGPT 24 U/L (13-56); Albumin, Serum 3.8 g/dL (3.2-5.0); Alkaline Phosphatase 62 U/L (45-117); Anion Gap 8 (5-15); BUN 15 mg/dL (7-18); BUN/Creat Ratio 12.1 RATIO (10-20); Chloride 104 mmol/L (98-107); Creatinine, Serum 1.24 mg/dL (0.55-1.02); EST Glomerular Filtration Rate 49 mL/min (>60); Est Glom Filt Rate - Afr Amer 59 mL/min (>60); Estimated Creatinine Clearance 54.75 ml/min; Globulin 3.1 g/dL (2.2-4.2); Glucose 106 mg/dL (74-106); Potassium 4.2 mmol/L (3.5-5.1); Protein, Total 6.9 g/dL (6.4-8.2); Sodium Level 139 mmol/L (136-145)
[2019-12-25 22:00] VITALS: BP 123/76; PULSE 87; RESP 20; O2SAT 99
[2019-12-25 22:45] VITALS: BP 132/80; PULSE 87; RESP 24; TEMP 36.7; O2SAT 100
--- NOTE | 2019-12-25 22:50 | HP.PCM_ITS ---
History of Present Illness The patient is a 49 year old F [] Past Medical History Past Medical History (Chronic Problems): Chronic Problems (Last Updated 02/07/19 @ 10:15 by Nano Mace) Thyroid disorder (Chronic) History of hypertension (Chronic) History of anemia (Chronic) Medical History: Medical History (Last Updated 02/07/19 @ 10:15 by Nano Mace) Thyroid disorder (Chronic) E07.9 Pulmonary embolism (Acute) I26.99 History of hypertension (Chronic) Z86.79 History of anemia (Chronic) Z86.2 Allergies No Known Allergies Allergy (Verified 12/25/19 19:55) Home Medications: Ambulatory Orders Medication Instructions Recorded Modafinil 200 mg PO BID 12/01/18 apixaban 5 mg tablet 5 mg PO BID #60 tab 10/18/19 Ergocalciferol [Vitamin D] 50,000 mcg PO QWEEK 12/16/19 Gabapentin [Neurontin] 600 mg PO BID 12/16/19 Gabapentin [Neurontin] 900 mg PO DAILY 12/16/19 Levothyroxine [Synthroid] 125 mcg PO DAILY #30 tab 12/16/19 Ss Tonic 100 mg PO DAILY 12/25/19 Surgical History: noncontributory Smoking Status: Current every day smoker Tobacco Use: Cigarettes - Physical Exam Vitals/I&O's: Vital Signs Temp Pulse Resp BP Pulse Ox 98.1 F 87 24 H 132/80 H 100 12/25/19 22:45 12/25/19 22:45 12/25/19 22:45 12/25/19 22:45 12/25/19 22:45 Oxygen Delivery Method Room Air Weight: 108.862 kg Body Mass Index (BMI) 36.5 Intake and Output for Last 24 Hours 12/23/19 12/24/19 12/25/19 23:59 23:59 23:59 Intake Total 1000 / 1000 Balance 1000 / 1000 Laboratory Results 12/25/19 20:15: POC Glucose 94 12/25/19 20:20: Urine Color Red, Urine Clarity Cloudy, Urine pH 6.5, Ur Specific [place] 1.010, Urine Protein 100 H, Urine Glucose (UA) Normal, Urine Ketones 5 H, Urine Occult Blood 250 H, Urine Nitrite Negative, Urine Bilirubin Negative, Urine Urobilinogen Normal, Ur Leukocyte Esterase 100 H, Urine RBC > 100 SEEN, Urine WBC 50-100 SEEN, Ur Squamous Epith Cells 5-10 SEEN, Amorphous Sediment 1+ URATE, Urine Bacteria 0 SEEN, Urine Mucus RARE 12/25/19 20:50: WBC 6.6, RBC 2.40 L, Hgb 6.3 L, Hct 21.6 L, MCV 90.0, MCH 26.3 L , MCHC 29.2 L, RDW Std Deviation 73.8 H, RDW Coeff of [place] 22.8 H, Plt Count 333, MPV 9.8, Immature Gran % (Auto) 1.100 H, Neut % (Auto) 72.9 H, Lymph % (Auto) 18.8 L, [place] % (Auto) 5.5, Eos % (Auto) 1.1, Baso % (Auto) 0.6, Absolute Neuts (auto) 4.8, Absolute Lymphs (auto) 1.23, Nucleated RBC % 0.8, Differential Comment 12/25/19 20:50: Sodium 139, Potassium 4.2, Chloride 104, Carbon Dioxide 27.0, Anion Gap 8, BUN 15, Creatinine 1.24 H, Estim Creat Clear Calc 54.75, Est GFR (MDRD) Af Amer 59 L, Est GFR (MDRD) Non-Af 49 L, BUN/Creatinine Ratio 12.1, Glucose 106, Calcium 9.0, Total Bilirubin 0.20, AST 16, ALT 24, Alkaline Phosphatase 62, Total Protein 6.9, Albumin 3.8, Globulin 3.1, Albumin/Globulin Ratio 1.2 12/25/19 20:50: Blood Type A POSITIVE, Antibody Screen NEGATIVE 12/25/19 20:50: Crossmatch See Detail Assessment/Plan All Active Problems (Last Updated 02/07/19 @ 10:15 by Nano Mace) Menorrhagia (Acute) Irregular menses (Acute) Obesity (Acute) History of pulmonary embolism (Acute) 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
[2019-12-25 22:59] VITALS: BP 122/90; PULSE 81; RESP 22; TEMP 37; O2SAT 99
[2019-12-25 23:07] VITALS: BP 122/90; PULSE 82; RESP 22; TEMP 36.8; O2SAT 99
--- NOTE | 2019-12-25 23:12 | EKG12_ITS ---
Test Reason : CHEST PAIN Blood Pressure : / mmHG Vent. Rate : 081 BPM Atrial Rate : 081 BPM P-R Int : 178 ms QRS Dur : 084 ms QT Int : 378 ms P-R-T Axes : 044 000 039 degrees QTc Int : 439 ms Normal sinus rhythm Low voltage QRS Borderline ECG Confirmed by TAYLOR HAWKINS ([id number]), image editor GOGO HAMILTON ([id number]) on 01/01/2020 8:08:37 AM Referred By: Stephani Mobley Confirmed By:TAYLOR HAWKINS
[2019-12-25 23:59] VITALS: BP 117/74; PULSE 89; RESP 20; TEMP 36.8
[2019-12-26] VITALS (8 sets, daily range): BP systolic 115–133; BP diastolic 73–84; PULSE 68–97; RESP 16–18; TEMP 36.6–36.8; O2SAT 96–98; BMI 43.0
[2019-12-26] MEDS: Furosemide 20 MG/2 ML VIAL IV (01:26)
[2019-12-26] MEDS: DiphenhydrAMINE 50 MG/ML Syringe 25 MG IV (01:26)
--- NOTE | 2019-12-26 03:59 | NURSING ---
0000 TAR vitals are actually supposed to be 0100. This RN neglected to change the time when charting the TAR vitals.
--- NOTE | 2019-12-26 06:46 | HP.PCM_ITS ---
History of Present Illness Date of Admission: 12/26/19 Chief Complaint: vaginal bleeding The patient is a 49 year old F who presented to ED with feel dizzy and almost passing out. Currently her vaginal bleeding has slowed down but she came in as is feeling weak. On 12/15 she presented to the ED & reported the following to Dr. Butts. She reports she has not seen a industrial custodian in many years. She states recently she has had irregular cycles where she will skip 2 to 3 months without having a menstrual cycle. She then has heavy menses, which typically last 1 to 3 days. This episode of vaginal bleeding started out 3 days ago. She is using 2 large pads at a time and changing them every 2 hours. She had a syncopal episode today due to feeling lightheaded and dizzy. She reports chronic anemia with a baseline hemoglobin of 7. She has a history of a pulmonary embolism and is on Eliquis. She says she has had blood transfusions before in the past. She declined admission & left AMA. This morning patient is feeling better. She denies feel dizzy or weak. Also denies CP/SOB. Past Medical History Past Medical History (Chronic Problems): Chronic Problems (Last Updated 02/07/19 @ 10:15 by Nano Mace) Thyroid disorder (Chronic) History of hypertension (Chronic) History of anemia (Chronic) Medical History: Medical History (Last Updated 02/07/19 @ 10:15 by Nano Mace) Thyroid disorder (Chronic) E07.9 Pulmonary embolism (Acute) I26.99 History of hypertension (Chronic) Z86.79 History of anemia (Chronic) Z86.2 Allergies No Known Allergies Allergy (Verified 12/25/19 19:55) Home Medications: Ambulatory Orders Medication Instructions Recorded Modafinil 200 mg PO BID 12/01/18 Ergocalciferol [Vitamin D] 50,000 mcg PO WE 12/16/19 Gabapentin [Neurontin] 600 mg PO BID 12/16/19 Gabapentin [Neurontin] 900 mg PO QHS 12/16/19 Ss Tonic 100 mg PO DAILY 12/25/19 Apixaban [Eliquis] 5 mg PO BID 12/26/19 Levothyroxine [Synthroid] 125 mcg PO DAILY 12/26/19 Surgical History: noncontributory Smoking Status: Current every day smoker Tobacco Use: Cigarettes Review of Systems Constitutional: Denies: Chills, Fever, Weight Change Cardiovascular: Denies: Chest Pain, Palpitations Respiratory: Denies: Cough, Shortness of breath at rest, Sputum production Gastrointestinal: Reports: Abdominal Pain VTE Information - Inpt Only VTE Present on Admission: No - Physical Exam Vitals/I&O's: Vital Signs Temp Pulse Resp BP Pulse Ox 98.1 F 75 16 125/84 H 97 12/26/19 04:54 12/26/19 04:54 12/26/19 04:54 12/26/19 04:54 12/26/19 04:54 Oxygen Delivery Method Room Air Weight: 282 lb 10.122 oz Body Mass Index (BMI) 43.0 Intake and Output for Last 24 Hours 12/24/19 12/25/19 12/26/19 23:59 23:59 23:59 Intake Total 1000 / 1000 800 / 800 Balance 1000 / 1000 800 / 800 General: Alert, Oriented x3 Abdomen: Soft, Non Tender, Non-Distended Extremities: No Calf Tenderness Laboratory Results 12/25/19 20:15: POC Glucose 94 12/25/19 20:20: Urine Color Red, Urine Clarity Cloudy, Urine pH 6.5, Ur Specific [place] 1.010, Urine Protein 100 H, Urine Glucose (UA) Normal, Urine Ketones 5 H, Urine Occult Blood 250 H, Urine Nitrite Negative, Urine Bilirubin Negative, Urine Urobilinogen Normal, Ur Leukocyte Esterase 100 H, Urine RBC > 100 SEEN, Urine WBC 50-100 SEEN, Ur Squamous Epith Cells 5-10 SEEN, Amorphous Sediment 1+ URATE, Urine Bacteria 0 SEEN, Urine Mucus RARE 12/25/19 20:50: WBC 6.6, RBC 2.40 L, Hgb 6.3 L, Hct 21.6 L, MCV 90.0, MCH 26.3 L , MCHC 29.2 L, RDW Std Deviation 73.8 H, RDW Coeff of [place] 22.8 H, Plt Count 333, MPV 9.8, Immature Gran % (Auto) 1.100 H, Neut % (Auto) 72.9 H, Lymph % (Auto) 18.8 L, [place] % (Auto) 5.5, Eos % (Auto) 1.1, Baso % (Auto) 0.6, Absolute Neuts (auto) 4.8, Absolute Lymphs (auto) 1.23, Nucleated RBC % 0.8, Differential Comment 12/25/19 20:50: Sodium 139, Potassium 4.2, Chloride 104, Carbon Dioxide 27.0, Anion Gap 8, BUN 15, Creatinine 1.24 H, Estim Creat Clear Calc 54.75, Est GFR (MDRD) Af Amer 59 L, Est GFR (MDRD) Non-Af 49 L, BUN/Creatinine Ratio 12.1, Glucose 106, Calcium 9.0, Total Bilirubin 0.20, AST 16, ALT 24, Alkaline Phosphatase 62, Total Protein 6.9, Albumin 3.8, Globulin 3.1, Albumin/Globulin Ratio 1.2 12/25/19 20:50: Blood Type A POSITIVE, Antibody Screen NEGATIVE 12/25/19 20:50: Crossmatch See Detail Current Medications Acetaminophen (Tylenol) 1,000 mg PO Q8H PRN PRN PRN Reason: Pain 1-10/10 or Fever Furosemide (Lasix) 20 mg IV X1 DANNY Stop: 12/26/19 13:00 Last Admin: 12/26/19 01:26 Dose: 20 mg Documented by: Gabapentin (Neurontin) 600 mg PO BIDCM DANNY Ondansetron HCl (Zofran) 4 mg IV Q8H PRN PRN PRN Reason: NAUSEA Assessment/Plan All Active Problems (Last Updated 02/07/19 @ 10:15 by Nano Mace) Menorrhagia (Acute) Irregular menses (Acute) Obesity (Acute) History of pulmonary embolism (Acute) 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 She is clinically improved. Pelvic US reviewed. Plan for discharge later today (after repeat labs). She will f/u in the office for further evaluation and treatment. Reviewed bleeding precautions. Routine medical care
--- NOTE | 2019-12-26 07:13 | PCM.DC ---
You will use the following diet at home:: Other - as per pcp Your food should be the consistency of: Regular Discharge Activity: Return to Normal Activity May resume sexual activity in: 1-2 weeks Weight Bearing Status: Weight bearing as tolerated Additional Instructions: Follow up within 1 week and the [facility]. Allergies/Adverse Reactions: Allergies No Known Allergies Allergy (Verified 12/25/19 19:55) Medications to take at Discharge Modafinil 200 mg PO BID 12/01/18 Ergocalciferol [Vitamin D] 50,000 mcg PO WE 12/16/19 Gabapentin [Neurontin] 600 mg PO BID 12/16/19 Gabapentin [Neurontin] 900 mg PO QHS 12/16/19 Ss Tonic 100 mg PO DAILY 12/25/19 Apixaban [Eliquis] 5 mg PO BID 12/26/19 Levothyroxine [Synthroid] 125 mcg PO DAILY 12/26/19 Primary Care Physician: Jennifer Dumont [Primary Care Provider] - Test Results: Test results from this visit will be discussed in further detail at your follow-up appointment, if applicable.
--- NOTE | 2019-12-26 07:15 | DCINST_ITS ---
You will use the following diet at home:: Other - As per pcp Discharge Activity: Return to Normal Activity May resume sexual activity in: 1-2 weeks Weight Bearing Status: Weight bearing as tolerated Call your doctor if you observe: Fever of 101 or Higher, Coldness, Increased Pain, Numbness or Tingling, Change in Color, Inability to urinate, Inability to have a bowel movement, Using more than one pad per hour, Shortness of breath, Dizziness, Fainting spells, Swelling in the ankles, Chest pain, Prolonged hiccoughing, Increased palpitations (irregular heartbeat), Calf discomfort, Uncontrolled pain Allergies/Adverse Reactions: Allergies No Known Allergies Allergy (Verified 12/25/19 19:55) Medications to take at Discharge Modafinil 200 mg PO BID 12/01/18 Ergocalciferol [Vitamin D] 50,000 mcg PO WE 12/16/19 Gabapentin [Neurontin] 600 mg PO BID 12/16/19 Gabapentin [Neurontin] 900 mg PO QHS 12/16/19 Ss Tonic 100 mg PO DAILY 12/25/19 Apixaban [Eliquis] 5 mg PO BID 12/26/19 Levothyroxine [Synthroid] 125 mcg PO DAILY 12/26/19 Primary Care Physician: Jennifer Dumont [Primary Care Provider] - Test Results: Test results from this visit will be discussed in further detail at your follow- up appointment, if applicable.
--- NOTE | 2019-12-26 08:08 | NURSING ---
Addendum entered by Madyson Almeida 12/26/19 08:41: Dr. Palumbo updated on all information via telephone- ok for now will follow up in office. labs refused Against medical advice. discharge home. Addendum entered by Madyson Almeida 12/26/19 08:10: pt refusing medications and states she takes quiet a few medications and will just take those when she gets home. Original Note: Amari from lab notified this RN that patient is refusing labs at this time. This RN entered room and educated patient on why labs are needed after a blood transfusion. Patient verbalized understanding and continues to refuse any lab work this morning. She states she is going to be d/c'ed today and that she refuses to be poked again. Patient requesting to be d/c'ed as soon as possible. Dr. Palumbo paged at this time to notify of both.
== END 2019-12-26 09:00 | disposition home or self-care (01) ==
LOC: ED 20:21 → MS3 12-26 00:54
PROVIDERS: Admitting Provider Obstetrics & Gynecology; Emergency Provider Emergency Medicine; Referring Provider Nurse Practitioner Family; Visit Provider Obstetrics & Gynecology
DX: D50.0 Iron deficiency anemia secondary to blood loss (chronic) (principal); D25.1 Intramural leiomyoma of uterus; Z86.711 Personal history of pulmonary embolism; E66.9 Obesity, unspecified; Z68.41 Body mass index [BMI] 40.0-44.9, adult; F17.200 Nicotine dependence, unspecified, uncomplicated; Z79.01 Long term (current) use of anticoagulants; Z79.899 Other long term (current) drug therapy; E07.9 Disorder of thyroid, unspecified; I10 Essential (primary) hypertension
CPT/HCPCS: 36430; 76830; 80053; 81001; 82962; 85025; 86850; 86900; 86901; 86920; 93005; 96361; 96374; 96375; 99218; 99285; J7030; J7040; P9016; G0378; J1940

== ENCOUNTER 2020-07-13 02:25 | Emergency (ER) | payer MEDICAID, SELFPAY ==
[2020-05-28 13:50] VITALS: BMI 41.8
[2020-07-13 02:25] VITALS: BP 164/98; PULSE 76; RESP 18; TEMP 36; O2SAT 98; BMI 44.6
[2020-07-13 02:28] VITALS: O2SAT 97
--- NOTE | 2020-07-13 02:47 | ED.VIS.GEN ---
History of Present Illness Chief Complaint: Shortness of Breath Informant: Patient Onset: Today - 30 min Context: Gradual Onset - While lying in bed awake Timing: Continuous Quality: Throat feels swollen Location: Entire throat nonlateralizing Current Severity: Moderate Maximum Severity: Moderate Worsened by: Nothing Relieved by: Nothing Associated Symptoms: See below Narrative: Patient is on Eliquis for pulmonary embolism and has been for months. She states several weeks ago she started having dizziness that feels like she is off balance and spinning. This is mostly when she is standing and walking, less when she is sitting and resting. She denies having an earache or pressure or discharge, but has tinnitus off and on. Denies headaches. She states she has had some changes in her vision and is very vague about it, thinks it has been at least for as long as she has had vertigo, and also think she has been feeling disoriented for at least as long as she has had this vertigo. Additionally states that for 3 weeks or more she has had dyspnea with exertion. She denies cough, fevers, chills, history of COVID-19 that she knows of, or contact with anyone with COVID-19 that she knows of. She states she has been swollen all over her body for a week. She denies any history of significant allergic reactions. Tonight after the symptoms started with her throat, she drank some Sprite and states that she had no trouble swallowing. Swelling in her throat is making her feel little short of breath but she denies having any problems in her chest tonight. - Past Medical History (1) Pulmonary embolism Status: Chronic (2) History of anemia Status: Chronic (3) History of hypertension Status: Chronic (4) Thyroid disorder Status: Chronic Past Medical History - Allergies and Home Meds Allergies/Adverse Reactions: Allergies No Known Allergies Allergy (Verified 07/13/20 02:28) Primary Care Physician: [facility] Jennifer Bryan [Primary Care Provider] - Surgical History: noncontributory Smoking Status: Current every day smoker Review of Systems General: Reports: Malaise. Denies: Chills, Fever, Sweats Eyes: Reports: Visual changes - bilaterally - blurry intermittently. Denies: Diplopia ENT: Reports: - - bilat tinnitus off and on. Denies: Rhinorrhea, Sore throat Cardiovascular: Denies: Chest pain, Palpitations, Heart racing Respiratory: Reports: Dyspnea on exertion. Denies: Cough Gastrointestinal: Denies: Abdominal pain, Nausea, Vomiting, Diarrhea, Melena, Hematochezia Genitourinary: Denies: Dysuria, Hematuria, Frequency Musculoskeletal: Reports: Neck pain - sometimes; not now, Swelling - my whole body. Denies: Myalgias, Back pain, Extremity Pain Skin: Denies: Rash, Wounds Neurological: Reports: - - vertigo x 2 wks. no lightheadedness.. Denies: Headache, Weakness, Numbness Physical Exam Vital Signs/Narrative: Vital Signs Temp Pulse Resp BP Pulse Ox 07/13/20 02:25 96.8 F L 76 18 164/98 H 98 Inital Vital Signs reviewed: Yes General: Well nourished, Well developed, Obese, No Acute Distress - Lying reclined without apparent airway issue. No increased secretions. No stridor. Head: Normocephalic, Atraumatic Eyes: Perrl, EOMI ENT: Moist mucous membranes, No rhinorrhea, TM's clear, - - Posterior oropharynx unremarkable. No asymmetry. No trismus. Normal, short uvula. No exudates. Neck: Supple, Nontender, No lymphadenopathy, - - No palpable thyromegaly or tenderness. Cardiovascular: Regular rate, Regular rhythm, No murmurs. Negative for: Tachycardia Respiratory: No distress, CTA bilaterally, Chest nontender Abdomen: Soft, Nontender, Nondistended, Normal bowel sounds Back: Nontender, Normal Inspection. Negative for: CVA tenderness Extremities: Nontender, No edema. Negative for: Calf Tenderness Skin: Normal color, No rash, No Trauma Neurological: Alert, Oriented x3, Cranial nerves II-XII grossly intact, Normal Strength, Normal Sensation, - - Normal [id number] and [id number] bilaterally Psychological: Normal affect, Normal Mood Diagnostic/Tx/Re-eval - Medical Decision Making Patient presents with multiple complaints. The differential is wide. First off, as I discussed with the patient at the bedside, having untreated low thyroid can make one have nonpitting edema which may explain her swelling, and even though she objectively has no swelling in her ankles, she certainly could have some third spacing as a result of her hypothyroidism. She had an extremely high TSH 6 or 7 months ago, and it is unclear why she has not had further studies done on this or been placed on thyroid medication. Her history was extremely vague here, as it was with answers to many of my questions. Pericardial effusion is in the differential diagnosis given her history of hypothyroidism and dyspnea with exertion. It is unknown how the vertigo is related to this, and as I discussed with her, she has many symptoms and I am not sure if they are all caused by the same thing or if they are all related or not. However, I ordered lots of testing and advised her that although I may not be able to give her definitive answers at 2:30 AM for all of this, much of which is chronic, I would watch her carefully on the monitor, and rule out life-threatening illnesses/problems to the best of my ability. Shortly thereafter, before any tests could be run or an EKG could be obtained, nursing came to me, states that she signed out AGAINST MEDICAL ADVICE, and left, all this prior to being able to discuss further with this patient or offer her any prescriptions. ED Disposition - Plan for ED Patient: Disposition: Against Medical Advice Diagnosis: Throat swelling, Dyspnea on exertion, Vertigo, Hypothyroidism Referrals: [facility],Jennifer Guajardo [Primary Care Provider] -
[2020-07-13 02:51] LABS: Absolute Lymphocyte Count 1.81 X10^3/uL (0.83-4.51); Absolute Neutrophil Count 4.9 X10^3/uL (2.0-7.7); Basophil# 0.06 X10^3/uL; Basophil% 0.8 % (0-1); Differential Indicated SCAN CRITERIA MET; Eosinophil# 0.09 X10^3/uL; Eosinophils% 1.2 % (0-5); Hematocrit 32.5 % (37-47); Lymphocyte # 1.81 X10^3/ul (4.0); Lymphocyte % 24.6 % (19-41); Mean Corp Hgb Conc 27.7 g/dL (32-36); Mean Corpuscular Hgb 20.5 pg (27.0-32.0); Mean Platelet Vol. 9.5 fl (6.2-12.0); Monocyte# 0.46 X10^3/uL; Monocyte% 6.3 % (0-10); NRBC Flagged by Analyzer 0 % (0-5); Neutrophil # 4.92 X10^3/uL (2.7-7.7); Neutrophil % 66.8 % (47-70); POSITIVE MORPHOLOGY YES; Platelet Count 343 K/mm3 (150-450); RBC Distribution Width CV 20.6 % (11.6-14.6); RBC Distribution Width SD 53.5 fl (35.1-43.9); Red Blood Count 4.39 M/mm3 (4.2-5.4); White Blood Count 7.4 K/mm3 (4.4-11.0)
--- NOTE | 2020-07-13 03:02 | ED.RN ---
PT PUT CALL LIGHT ON AND STATE SHE FELT SOB. REPOSITIONED HER IN THE BED. PT STATES HER THROAT FELL LIKE ITS CLOSING. REASSURED HER THAT IT APPEARS OK. EXPLAINED SHE WAS BEING MONITORED AND WE WERE DOING TEST TO SEE IF WE COULD FIGURE OUT WHAT WAS GOING ON. PT THEN STATED SHE THOUGHT SHE FELT LIKE SHE COULD PAS OUT. AGAIN ATTEMPTED TO REASSURE HER THAT SHE WAS SAFE IN THE BED. NEW BP WAS STARTED. VS WERE WNL. EXPLAINED THAT HER VS LOOKED GOOD. PT THEN STATED SHE WAS WANTING HER FIANCE TO TAKE HER OUT OF HERE. QUESTIONED WHY SHE FELT THAT WAY AND SHE STATED SHE FELT WE WEREN'T TAKING HER SERIOUSLY. AGAIN ATTEMPTED TO REASSURE HER OF THE TEST WE WERE RUNNING AND WERE CLOSELY MONITORING HER. PT STATED SHE WANTED EVERYTHING TAKEN OFF AND SHE WANED TO LEAVE. PHYSICIAN NOTIFIED, AMA FORMS SIGNED AND IV WAS DC'D. PTS SPEECH IMPROVED AT THIS TIME. PT WAS ALSO ABLE TO STAND AND AMBULATE FROM THE BED AND DRESS HERSELF WITHOUT ASSISTANCE. PT WAS ALSO ABLE TO CLEARLY CALL HER FIANCE AND WAITED IN THE WAITING ROOM TIL HER ARRIVED.
[2020-07-13 03:06] LABS: Stomatocyte RARE
[2020-07-13 03:43] LABS: Anion Gap 5 (5-15); BUN 16 mg/dL (7-18); BUN/Creat Ratio 12.6 RATIO (10-20); Calcium,Total 8.6 mg/dL (8.5-10.1); Chloride 105 mmol/L (98-107); Creatinine, Serum 1.27 mg/dL (0.55-1.02); EST Glomerular Filtration Rate 47 mL/min (>60); Est Glom Filt Rate - Afr Amer 57 mL/min (>60); Estimated Creatinine Clearance 52.87 ml/min; Free T3 < 0.5 pg/mL (2.18-3.98); Glucose 107 mg/dL (74-106); Potassium 3.8 mmol/L (3.5-5.1); Sodium Level 138 mmol/L (136-145); T4 Total, Thyroxin < 0.5 ug/dL (4.8-13.9)
== END 2020-07-13 03:10 | disposition left against medical advice (07) ==
PROVIDERS: Emergency Provider Emergency Medicine
DX: R60.9 Edema, unspecified (principal); R06.09 Other forms of dyspnea; R42 Dizziness and giddiness; E03.9 Hypothyroidism, unspecified; F17.200 Nicotine dependence, unspecified, uncomplicated; Z86.711 Personal history of pulmonary embolism; Z79.02 Long term (current) use of antithrombotics/antiplatelets
CPT/HCPCS: 80048; 84436; 84443; 84481; 84484; 85025; 99283; A4216

== ENCOUNTER 2023-03-27 16:19 | Emergency (ER) | payer MEDICARE, MEDICAID, SELFPAY ==
[2023-03-27 16:21] VITALS: BP 152/97; PULSE 112; RESP 18; TEMP 36.6; O2SAT 100; BMI 39.7
--- NOTE | 2023-03-27 16:58 | RAD_ITS ---
EXAM: XR RIGHT KNEE COMPLETE, 4 OR MORE VIEWS CLINICAL INDICATION: swelling TECHNIQUE: Four or more views of the right knee. COMPARISON: No relevant prior studies available. FINDINGS: BONES/JOINTS: Marginal osteophytosis and joint space narrowing particularly in the medial weightbearing compartment and the patellofemoral compartments. Spurring of the tibial spines. Trace joint effusion. No sclerotic or destructive changes observed. No acute fracture or dislocation. SOFT TISSUES: No significant abnormality. No soft tissue swelling or gas. No radiopaque foreign body. RAD/Knee 4 or More Views IMPRESSION: Degenerative changes and trace joint effusion. No discrete evidence of acute fracture or dislocation. Electronically Signed: Hebert Pelletier DO at 17:15 EDT ,
--- NOTE | 2023-03-27 17:17 | EDS_ITS ---
HPI <BARBARA Osorio - Last Filed: 03/27/23 17:20> History of Present Illness Chief Complaint: Lower Extremity Injury Narrative Narrative: Patient is a 52-year-old female with history of MS, obesity, history of pulmonary embolism on Eliquis who presents to the emergency department with right knee pain. Patient's denies any specific injury. Patient dates has been worse over the last week, she was tried anti-inflammatories, elevation, ice and heat. Patient is here for evaluation. PFS <BARBARA Osorio - Last Filed: 03/27/23 17:20> [facility] Medical History (Updated 03/27/23 @ 17:[address] Jun Saravia MD) History of anemia History of hypertension Knee pain Pulmonary embolism Thyroid disorder Home Medications modafinil 200 mg tablet 200 mg PO BID MS 12/01/18 [History Last Taken 12/25/19 16:00] ergocalciferol (vitamin D2) 1,250 mcg (50,000 unit) capsule 50,000 mcg PO WE supplement 12/16/19 [History Last Taken 12/19/19 09:00] albuterol sulfate 90 mcg/actuation aerosol inhaler 2 puff inhalation Q4H PRN shortness of breath or wheezing #8.5 grams 05/28/20 [Rx Last Taken Unknown] gabapentin 300 mg capsule See Rx Instructions PO .COMPLEX nerve pain 02/11/21 [History Last Taken Unknown] levothyroxine 150 mcg tablet 150 mcg PO DAILY 02/11/21 [History Last Taken Unknown] rosuvastatin 20 mg tablet 20 mg PO DAILY 11/12/21 [History Last Taken Unknown] apixaban 5 mg tablet 5 mg PO BID blood thinner for PE #180 tabs 04/07/22 [Rx Last Taken Unknown] Allergy/AdvReac Type Severity Reaction Status Date / Time No Known Allergies Allergy Verified 03/27/23 16:20 Social History Smoking Status: Current some day smoker tobacco type: e-cigarettes Tobacco: How many years used: 8 Electronic Cigarette Use: with nicotine second hand exposure: No alcohol intake: never substance use type: does not use ROS <BARBARA Osorio - Last Filed: 03/27/23 17:20> ROS ED ROS Narrative Constitutional: Negative for fever, chills, weight loss, weakness Eyes: Negative for vision loss, vision change, double vision ENT: Negative for any sore throat, ear pain, congestion Cardiovascular: Negative for any chest pain, tightness, palpitations Respiratory: Negative for any cough, sputum production, hemoptysis, dyspnea, dyspnea on exertion, orthopnea Gastrointestinal: Negative for any abdominal pain, nausea, vomiting, diarrhea, constipation, blood in stool, blood in vomit : Negative for any urinary frequency, dysuria, retention, blood in urine Muscle skeletal: Negative for any muscle joint pain, stiffness, myalgias, arthralgias, neck pain, back pain. Positive for right knee pain Neurological: Negative for any headache, syncope, numbness or tingling, dizziness Skin: Negative for any rashes, lumps, itching, abrasions, lacerations Psychiatric: Negative for any depression, anxiety, stress, suicidal ideation, homicidal ideation Hematologic: Negative for any easy bruising, excessive bruising, easy bleeding Allergies: Negative for any eczema, hives, rash EXAM <BARBARA Osorio - Last Filed: 03/27/23 17:20> Physical Exam Narrative Exam Narrative: Vital signs reviewed. Extremities: No peripheral edema, no signs of gross trauma or deformity. Active full range of motion of all extremities. Patient has some pain on palpation to the medial aspect of the right knee. Patient is intact extensor mechanism. Patient able to flex and extend with minimal discomfort. Patient has no calf pain. There is no redness or inflammation. Neuro: Cranial nerves II through XII intact, no focal neurological deficits. Skin: Clean dry and intact with no rash, purpura, petechiae, vesicles or pustules. Backs/flank: No CVA tenderness, no midline spinal tenderness, no deformity. Psych: Normal mood and affect. No SI, HI or acute psychosis. Const Vital Signs: 03/27/23 16:21 Temperature 97.8 F Temperature Source Temporal Pulse Rate 112 H Respiratory Rate 18 Blood Pressure 152/97 H Blood Pressure Mean 115 Pulse Ox 100 Oxygen Delivery Method Room Air <Dr. Jun Saravia MD - Last Filed: 03/27/23 17:27> Physical Exam Const Vital Signs: 03/27/23 16:21 Temperature 97.8 F Temperature Source Temporal Pulse Rate 112 H Respiratory Rate 18 Blood Pressure 152/97 H Blood Pressure Mean 115 Pulse Ox 100 Oxygen Delivery Method Room Air [facility] <BARBARA Osorio - Last Filed: 03/27/23 17:20> [facility] Treatment and Re-Evaluation :: Patient appears generally well, patient appears nontoxic, vital signs are stable. Patient presents to the emergency department with complaints of right knee pain. Patient did receive 4 view x-rays of the right knee. All radiologic examinations were read, reviewed by the emergency department attending. From these reads, a plan of care will be put in place. X-ray showed arthritis, no acute process. Patient will use ibuprofen, Tylenol, continue to ice, no heat. She will follow-up with orthopedics if needed for further evaluation. She is happy with the plan of care, patient stable for discharge at this time, there is no evidence suspect any septic joint, deep tissue infection, DVT. <Dr. Jun Saravia MD - Last Filed: 03/27/23 17:27> [facility] Narrative Medical decision making narrative: I have personally performed a face to face assessment of the patient and have reviewed the NATHANAEL Note. I performed a substantive portion of the visit including all aspects of the following. My bhatia findings include: History is 52-year-old female with right knee pain for approximately a week. No fall or trauma. No fever. No prior history of surgery. No history of gout. Exam is [52-year-old female. Vital signs stable afebrile. HEENT exam unremarkable. Lungs clear. Heart regular rhythm. Abdomen soft. Is all 4 extremities. Right knee ACL PCL are intact as are the MCL and LCL. She has full flexion extension. She has crepitance with flexion consistent with arthritis. Is a septic joint. Mild swelling. No bony deformity. Right hip, ankle and foot are nontender neurovascular intact with full range of motion.] Medical Decision Making [x-ray of the right knee shows medial joint space narrowing consistent with arthritis. Ice. Motrin. Follow-up with orthopedics if not improving. I went over the x-ray results with the patient.] Other additions or changes: [None] Radiography Diagnostic Testing: Right knee x-ray 3 views interpreted by myself shows no acute abnormality. Joint space narrowing medially consistent with arthritis. No fracture. Discharge Plan Triage Chief Complaint: Lower Extremity Injury ED Midlevel Provider: Sukhwinder Gibbons ED Provider: Saravia,Jun Dx/Rx/DC Orders Clinical Impression: Arthritis of knee Instructions: ED Osteoarthritis Prescriptions: No Action albuterol sulfate 90 mcg/actuation HFA aerosol inhaler 2 puff INHALATION Q4H PRN (Reason: shortness of breath or wheezing) Qty: 8.5 3RF Rx Instructions: administer with spacer levothyroxine 150 mcg tablet 150 mcg PO DAILY rosuvastatin 20 mg tablet 20 mg PO DAILY apixaban 5 mg tablet 5 mg PO BID Qty: 180 3RF modafinil 200 MG tablet 200 mg PO BID Rx Instructions: takes at 0900 and 1600 ergocalciferol (vitamin D2) 1,250 mcg (50,000 unit) capsule 50,000 mcg PO WE Rx Instructions: gabapentin 300 mg capsule See Rx Instructions PO .COMPLEX Rx Instructions: PO; Take 2 in am 2 in afternoon and 3 at bed time. [facility]: Alfredo Freeman DO [Med Staff - Active Staff] - 10-14 Days [facility] not better [facility] - Activity Restrictions/Additional Instructions: The pain in your knee is due to arthritis and swelling. Rest. Ice to your knee. Motrin or ibuprofen for pain and swelling. Progressively improved. If not follow-up with the local orthopedic physician have it reevaluated. If need be they can inject steroids in your knee joint to help this out. Disposition Disposition: Home, Self Care
== END 2023-03-27 17:32 | disposition home or self-care (01) ==
PROVIDERS: Emergency Provider Emergency Medicine; Visit Provider Emergency Medicine
DX: M17.11 Unilateral primary osteoarthritis, right knee (principal); F17.290 Nicotine dependence, other tobacco product, uncomplicated; Z86.711 Personal history of pulmonary embolism
CPT/HCPCS: 73564; 99282